=== PATIENT | female | born 1975 ===

== ENCOUNTER 2025-08-08 07:46 | Outpatient (REF) | payer OTHER, SELFPAY | END 2025-08-08 07:47 | disposition home or self-care (01) | LOC: HO.LAB 07:46 | PROVIDERS: PCP Internal Medicine; Visit Provider Psychiatry & Neurology Neurology | DX: G40.909 Epilepsy, unspecified, not intractable, without status epilepticus (principal); G44.221 Chronic tension-type headache, intractable; R20.2 Paresthesia of skin; I10 Essential (primary) hypertension; Z79.899 Other long term (current) drug therapy; Z01.84 Encounter for antibody response examination | CPT/HCPCS: 36415; 85652; 86225; 86431 ==

== ENCOUNTER 2025-08-08 07:46 | Outpatient (AMB) | payer OTHER, SELFPAY ==
--- OUTSIDE RECORDS SUMMARY | 2025-08-08 07:50 | XMS_ITS | Clinical Summary ---
Author Organization [facility] [address] [facility] Address [address] [place] [address] Phone Care Team Providers Care Bottom Pounder [employer] Name Role Phone Eva Sarmiento MD Primary Care Provider [phone] Medications MULTIVITAMIN ORAL Take by mouth. Activ e budesonide (PULMICORT) 1 mg/2 mL nebulizer solution Take 2 mL (1 mg total) by nebulization 1 (one) time each day. Rinse mouth with water after use to reduce aftertaste and incidence of candidiasis. Do not swallow. Active cetirizine (ZyrTEC) 10 mg tablet Take 1 tablet (10 mg total) by mouth 1 (one) time each day. Active ipratropium-alb uteroL (COMBIVENT RESPIMAT) 20-100 mcg/actuation inhaler Inhale 1 puff by mouth 4 (four) times a day. Active fluticasone (VERAMYST) 27.5 mcg/actuation nasal spray Administer 2 sprays into each nostril 1 (one) time each day. Active furosemide (LASIX) 40 mg tablet Take 1 tablet (40 mg total) by mouth 1 (one) time each day. Active levETIRAcetam (KEPPRA) 500 mg tablet Take 1 tablet (500 mg total) by mouth 2 (two) times a day. Active losartan (COZAAR) 100 mg tablet Take 1 tablet (100 mg total) by mouth 1 (one) time each day. Active metoprolol succinate (TOPROL-XL) 100 mg 24 hr tablet Take 1 tablet (100 mg total) by mouth 2 (two) times a day. Do not crush or chew. Active montelukast (SINGULAIR) 10 mg tablet Take 1 tablet (10 mg total) by mouth at bedtime. Active budesonide-form oteroL (SYMBICORT) 160-4.5 mcg/actuation inhaler Inhale 2 puffs by mouth 2 (two) times a day. Rinse mouth with water after use to reduce aftertaste and incidence of candidiasis. Do not swallow. Active Encounters Date Type Department Care Team Description 07/11/2025 Telephone Gastroenterology - [address] [facility] [address] [place] [address] Wilbur Herman MD from Last 3 Months Social History Tobacco Use Types Packs/Day Years Used Date Smoking Tobacco: Never Assessed Comments Unknown Sex and Gender Information Value Date Recorded Sex Assigned at Female 07/11/2025 3:08 PM EDT Legal Sex Female 3:07 PM EDT Gender Identity Female 07/11/2025 3:08 PM EDT Sexual Orientation Not on file Plan of Treatment Health Maintenance Due Date Last Done Comments Breast Cancer Screening 1976 DTaP,Tdap,and Td Vaccines (1 - Tdap) 1995 Hepatitis B Vaccines (1 of 3 - 19+ 3-dose series) 1995 Cervical Cancer Screening: P ap Smear 1997 Depression Screening 11/22/2024 Colorectal Cancer Screening: Colonoscopy 07/11/2025 HIV Screening 07/11/2025 Hepatitis C Screening 07/11/2025 Social Influencers of Health Screening 07/11/2025 COVID-19 Vaccine ( - 2023-2 5 season) 2025 Influenza Vaccine (#1) 2025 HIB Vaccines Aged Out No longer eligi ble based on patient's age to complete this topic HPV Vaccines Aged Out No longer eligi ble based on patient's age to complete this topic Hepatitis A Vaccines Aged Out No long er eligible based on patient's age to complete this topic IPV Vaccines Aged Out No longer eligi ble based on patient's age to complete this topic MMR Vaccines Aged Out No longer eligi ble based on patient's age to complete this topic Meningococcal ACWY Vaccine Aged Out N o longer eligible based on patient's age to complete this topic Meningococcal B Vaccine Aged Out No l onger eligible based on patient's age to complete this topic Pneumococcal Vaccine: Pediat rics (0 to 5 Years) and At-Risk Patients (6 to 49 Years) Aged Out No longer eligible b ased on patient's age to complete this topic RSV Immunization Patients Un moustapha 20 months Aged Out No longer eligible b ased on patient's age to complete this topic Varicella Vaccines Aged Out No longer eligible based on patient's age to complete this topic Insurance [facility] [address] [place] [address] Care Teams Bottom [employer]ounder [employer] Relationship Specialty Start Date End Date Eva Sarmiento MD [address] [facility] [address] [place] [id number] PCP - General Family Medicine 07/11/25
--- NOTE | 2025-08-08 08:08 | MHC.OFFVIS ---
Intake Visit Reasons: Epilepsy Allergies SHWETA Inhibitors Allergy (Unknown, Verified 08/02/25 07:39) Cough Medication List - Last Reconciled 08/08/25 by Lily Carlin MD budesonide 1 mg inhalation DAILY budesonide-formoterol 160-4.5 mcg/actuation (Symbicort) 1 inh inhalation BID cetirizine 10 mg PO DAILY PRN fluticasone propionate 50 mcg/actuation 1 inh inhalation Q12H furosemide 40 mg PO DAILY ipratropium-albuterol 20-100 mcg/actuation (Combivent Respimat) 1 puff inhalation QID levetiracetam 500 mg PO BID losartan 100 mg PO DAILY metoprolol succinate ER 100 mg PO BID montelukast 10 mg PO DAILY HPI Comments Details: The patient is a 49-year-old female presenting with numbness and tingling in extremities and chronic daily headaches. These symptoms started a couple of years ago as occasional episodes but have become constant over the past few months, particularly in her feet and legs, sometimes accompanied by a sensation of cold. The headaches, occurring almost daily, are located mainly on the right side of her head and occasionally at the back, with a dull to sharp nature that is partially relieved by Advil. 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 She has a long-standing history of seizure disorder since 2001, initially diagnosed during , with current management on Keppra showing effective seizure control, although recent adjustments of dosage were made due to low drug levels. Her medical history is also significant for hypertension, treated with multiple antihypertensives, and asthma, which she currently manages with Combivent after discontinuing Symbicort due to cost constraints. The patient has not experienced significant alcohol use or diabetes. She mentions lupus in a grandparent, highlighting a potential autoimmune component to consider. She denies excessive stress but acknowledges a typical amount of regular life pressure. Sensory disturbances, headaches, and possible autoimmune conditions are primarily considered as underlying causes. [facility] Medical History (Updated 08/08/25 @ 08:35 by Lily Carlin MD) A-fib Moderate persistent asthma Generalized convulsive epilepsy Seizures Polycystic disease, ovary Obesity Essential hypertension HLD (hyperlipidemia) Allergic rhinitis Surgical History (Updated 08/02/25 @ 07:38 by Elaina Robertson CMA) History of bunionectomy Previous section H/O tubal ligation H/O elbow surgery Family History (Updated 08/02/25 @ 07:36 by Elaina Robertson CMA) Mother Thyroid cancer Asthma Essential hypertension Disorder of thyroid gland Arthritis Father Essential hypertension Arthritis Prostate cancer Heart disease Blood coagulation disorder Malignant tumor of testis Paternal Grandfather Heart disease Non-Hodgkin lymphoma Maternal Grandmother Malignant tumor of colon Paternal Grandmother Heart disease Malignant tumor of breast Social History (Updated 08/02/25 @ 07:37 by Elaina Robertson [facility]) Patient Tobacco Use Status: Former Tobacco user Tobacco use type: Cigarette Healthcare Proxy: Yes Review of Systems Const Details: - Neurological: Reports numbness and tingling in extremities, chronic daily headaches; denies episodes of unconsciousness. - Musculoskeletal: Denies muscle weakness or joint pain. - Cardiovascular: Denies palpitations or syncope; reports history of hypertension. - Respiratory: Reports daily usage of inhaler for asthma. - Psychiatric: Denies anxiety, significant stress. - Hematological/Immunological: Denies known autoimmune disorders; reports family history of lupus. Assessment & Plan Assessment & Plan (1) Paresthesias: Code(s): R20.2 - Paresthesia of skin Category: Medical (2) Chronic tension type headache: Code(s): G44.229 - Chronic tension-type headache, not intractable Category: Medical Qualifiers: Intractability: intractable Qualified Code(s): G44.221 - Chronic tension-type headache, intractable (3) Seizure disorder: Comment: Labs at [facility] in 2024: SPEP ok, IF ok, CMP ok, LFTs ok, Treponema test ok, HIV ok, Lyme ok, CPK ok, CPK 185, Heavy metal scr neg Code(s): G40.909 - Epilepsy, unspecified, not intractable, without status epilepticus Category: Medical Plan Impression: a: Paresthesias, chronic, with non focal exam. D/D included a peripheral neuropathic process, metabolic abnormality (labs are normal), inflammatory process (like SLE) or stress/anxiety related (she denies) b: Seizure disorder, stable c: Headache, probably migrainous Rec: EMG/NCS legs dsDNA titer She is advised to bring CD of brain MRI done at [facility] Will gather EEG reports I discussed with the patient the likelihood that the continuous numbness and tingling may point towards a systemic or neurological disorder. We discussed lupus as a potential, given her family history, and I emphasized the need for a comprehensive nerve study to evaluate her symptoms accurately. The potential for stress and anxiety contributing to symptoms was also highlighted. We reviewed the management of her chronic daily headaches, emphasizing non-pharmacological approaches and the constraints posed by imaging studies given insurance constraints. Seizure control strategies were revised, including adherence to her medication regimen and potential risk activities. We discussed the importance of managing her hypertension with current medications and noted challenges in asthma treatment due to medication costs, with a plan to explore cost-effective strategies. Follow-up coordination on these plans was conveyed to the patient. Orders: Orders NE nerve conduction velocity Today R20.2 - Paresthesia of skin Anti DNA DS Antibody Today G40.909 - Epilepsy, unspecified, not intractable, without status epilepticus, R20.2 - Paresthesia of skin Rheumatoid Factor Today R20.2 - Paresthesia of skin Erythrocyte Sedimentation Rate Today R20.2 - Paresthesia of skin NE electromyogram (EMG) Today R20.2 - Paresthesia of skin Coding Level of Care Code New Pt Level 5 (28369) Diagnoses Paresthesias R20.2 Chronic tension-type headache, intractable G44.221 Intractability: intractable Seizure disorder G40.909
== END 2025-08-08 08:52 | disposition home or self-care (01) ==
LOC: HO.HSM 07:47
PROVIDERS: PCP Internal Medicine; Visit Provider Psychiatry & Neurology Neurology
DX: R20.2 Paresthesia of skin (principal); G44.221 Chronic tension-type headache, intractable; G40.909 Epilepsy, unspecified, not intractable, without status epilepticus
CPT/HCPCS: 99205

== ENCOUNTER 2025-08-30 15:04 | Outpatient (REF) | payer OTHER, SELFPAY ==
--- NOTE | 2025-08-30 16:58 | EMG_ITS ---
Chief complaint: Numbness and tingling of extremities Reason for referral: R20.2 Paresthesia of skin Referred by: Alize Carlin MD Procedure done: Left upper extremity and left lower extremity NCS / EMG Left median and ulnar motor and sensory studies were obtained with F responses. Left tibial and peroneal motor studies were obtained with F responses. Left median and ulnar mixed, radial sensory, median and lateral antecubital brachial, superficial peroneal and sural sensory studies were performed. EMG needle examination was performed. There was mild prolongation of left median motor distal latencies, which was also noted with median mixed sensory study associated with slowed conduction velocity. Otherwise no significant abnormality was noted. Impression: [id number] left median neuropathy across carpal tunnel. Left lower extremity study was within normal range. [facility]
== END 2025-08-30 15:05 | disposition home or self-care (01) ==
LOC: HO.NEURO 15:04
PROVIDERS: PCP Internal Medicine; Visit Provider Psychiatry & Neurology Neurology
DX: Z13.89 Encounter for screening for other disorder (principal)

== ENCOUNTER → 2025-08-30 16:58 | Outpatient (BNV) | payer OTHER, SELFPAY | PROVIDERS: PCP Internal Medicine; Visit Provider Psychiatry & Neurology Neurology | DX: G56.02 Carpal tunnel syndrome, left upper limb (principal) | CPT/HCPCS: 95886; 95913 ==

== ENCOUNTER 2025-09-06 07:48 | Outpatient (AMB) | payer OTHER, SELFPAY ==
--- OUTSIDE RECORDS SUMMARY | 2025-09-06 07:51 | XMS_ITS | Clinical Summary ---
Author Organization [facility] [address] [facility] Address [address] [place] [address] Phone Care Team Providers Care Pipeliner Name Role Phone Eva Sarmiento MD Primary Care Provider [phone] Medications MULTIVITAMIN ORAL Take by mouth. Activ [...] Team Description 07/11/2025 Telephone Gastroenterology - [address] [facility] [address] [place] [address] Wilbur Herman MD from Last [...] Last Done Comments Breast Cancer Screening 1976 Colorectal Cancer Screening: Colonoscopy 1976 DTaP,Tdap,and Td Vaccines (1 - Tdap) 1995 Hepatitis B Vaccines (1 of 3 - 19+ 3-dose series) 1995 Cervical Cancer Screening: P ap Smear 1997 Depression Screening 11/22/2024 HIV Screening 07/11/2025 Hepatitis C Screening 07/11/2025 Social Influencers of Health Screening 07/11/2025 COVID-19 Vaccine (1 - 2023-2 5 season) 2025 Influenza Vaccine (#1) 2025 RSV Immunization Adult Patie nts (1 - 1-dose 75+ series) 2051 HIB Vaccines Aged Out No longer eligi [...] patient's age to complete this topic Insurance [facility] [address] [place] [address] Care Teams Pipeliner Relationship Specialty Start Date End Date Eva Sarmiento MD [address] [facility] [address] [place] [id number] PCP - General Family Medicine 07/11/25
--- NOTE | 2025-09-06 08:07 | MHC.OFFVIS ---
Intake Visit Reasons: Results Allergies SHWETA Inhibitors Allergy (Unknown, Verified 08/02/25 07:39) Cough HPI Comments Details: The patient is a 50-year-old female presenting with neuropathic symptoms and suspicion of systemic lupus erythematosus (SLE). She describes a persistent facial rash and redness, lasting for several years, possibly representing chronic cutaneous lupus erythematosus and exacerbated by sun exposure. Neuropathic symptoms are reported in both arms, legs, and feet, characterized by an electric sensation, which may denote broad peripheral nerve involvement. The patient?s history of mild carpal tunnel syndrome has been documented, although her symptoms are more extensive, suggesting an additional underlying pathology such as systemic lupus erythematosus. Notably, her elevated anti-DNA titer further supports this suspicion. Due to scheduling issues, she has not received rheumatologic evaluation, complicating diagnosis and management. A skin nerve biopsy has been considered to assess small fiber neuropathy, while an update on prior imaging studies is awaited to complete neurological assessment records. [facility] Medical History (Updated 09/06/25 @ 08:13 by Lily Carlin MD) A-fib Moderate persistent asthma Generalized convulsive epilepsy Seizures Polycystic disease, ovary Obesity Essential hypertension HLD (hyperlipidemia) Allergic rhinitis Surgical History (Updated 08/02/25 @ 07:38 by Elaina Robertson CMA) History of bunionectomy Previous section H/O tubal ligation H/O elbow surgery Family History (Updated 08/02/25 @ 07:36 by Elaina Robertson CMA) Mother Thyroid cancer Asthma Essential hypertension Disorder of thyroid gland Arthritis Father Essential hypertension Arthritis Prostate cancer Heart disease Blood coagulation disorder Malignant tumor of testis Paternal Grandfather Heart disease Non-Hodgkin lymphoma Maternal Grandmother Malignant tumor of colon Paternal Grandmother Heart disease Malignant tumor of breast Social History (Updated 08/02/25 @ 07:37 by Elaina Robertson CMA) Patient Tobacco Use Status: Former Tobacco user Tobacco use type: Cigarette Review of Systems Const Details: - Skin: Reports persistent facial redness and rash, sensitive to sun exposure. - Neurological: Reports electric sensations in arms, legs, feet. Denies any recent MRI since 2001. - Musculoskeletal: Reports mild carpal tunnel syndrome in one hand. - General: Denies any intervention by rheumatology yet after scheduling issues. Physical Exam Skin Other: Butterfly type of rash was noted on her face. Neuro Other: Mental Status: Alert and oriented to person, place, and time. Normal attention. Normal spontaneous speech, fluency, and comprehension. No obvious issues with mood and memory. Affect is appropriate. Cranial Nerves: CN II: Visual quiros full to confrontation, visual acuity intact. CN III, IV, : Pupils equal, round, reactive to light and accommodation. Extraocular movements are normal. CN V: Facial sensation is normal. CN VII: Facial movements symmetrical. CN VIII: Hearing intact to bedside conversation is normal. CN IX, X: Palate elevates symmetrically. CN XI: Shoulder shrug and head turn symmetrical. CN XII: Tongue midline without atrophy or fasciculations. Extrapyramidal: Full facial expressions and blinking. No rigidity. Movements are appropriate with no tremor or abnormality. Speech: Normal; no dysarthria or tremor. Assessment & Plan Assessment & Plan (1) Chronic tension type headache: Code(s): G44.229 - Chronic tension-type headache, not intractable Category: Medical Qualifiers: Intractability: intractable Qualified Code(s): G44.221 - Chronic tension-type headache, intractable (2) Seizure disorder: Comment: Labs at [facility] in 2024: SPEP ok, IF ok, CMP ok, LFTs ok, Treponema test ok, HIV ok, Lyme ok, CPK ok, CPK 185, Heavy metal scr neg Code(s): G40.909 - Epilepsy, unspecified, not intractable, without status epilepticus Category: Medical (3) Paresthesias: Comment: EMG/NCS L arm and leg in Aug 2025 at [facility]: Mild left median neuropathy across CT, LE study was ok Code(s): R20.2 - Paresthesia of skin Category: Medical Plan During the visit, we reviewed the patient's multifaceted symptoms, particularly the high anti-DNA titer raising the possibility of systemic lupus erythematosus (SLE). I discussed the significant delay in the rheumatology appointment and emphasized the urgency of timely evaluation, proposing a workaround involving a nurse practitioner for quicker action. We laid out a plan for a skin nerve biopsy to evaluate for small fiber neuropathy; I explained the procedure, the benefits of obtaining a definitive assessment, and the negligible risks associated. Alternative options, should biopsy results be negative, were not discussed in the conversation. Consent for this approach was not discussed but will be needed. I highlighted preventive strategies for potential chronic cutaneous lupus erythematosus, stressing strict sun protection as a primary measure. The patient understands the necessity for prompt management upon rheumatological verification of SLE. Coding Level of Care Code Est Pt Level 5 (95261) Diagnoses Chronic tension-type headache, intractable G44.221 Intractability: intractable Seizure disorder G40.909 Paresthesias R20.2
== END 2025-09-06 08:20 | disposition home or self-care (01) ==
LOC: HO.HSM 07:48
PROVIDERS: PCP Internal Medicine; Visit Provider Psychiatry & Neurology Neurology
DX: G44.221 Chronic tension-type headache, intractable (principal); G40.909 Epilepsy, unspecified, not intractable, without status epilepticus; R20.2 Paresthesia of skin
CPT/HCPCS: 99214